=== PATIENT | male | born 1935 | race Caucasian/White ===

== ENCOUNTER 2020-05-30 12:20 | Inpatient (IN) | payer OTHER ==
[~2020-05-30] VITALS: Ht 152 cm; Wt 70.4 kg
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
[2020-05-30 12:27] VITALS: BP 142/73
[2020-05-30 14:42] LABS: ABSOLUTE NEUTROPHILS 4.6 thou/uL (1.4-8.2); BASOPHILS 0.4 % (0.0-2.0); EOSINOPHILS 1.8 % (0.0-3.0); HEMATOCRIT 37.4 % (42.0-52.0); HEMOGLOBIN 12.8 gm/dL (14.0-18.0); LYMPHOCYTES 39.1 % (24.0-44.0); MCH 32.9 pg (26.0-34.0); MCHC 34.1 g/dL (28.0-37.0); MCV 96.5 fL (80.0-100.0); MONOCYTES 8.2 % (1.0-8.0); PLATELET COUNT 214 thou/uL (150-400); POLYS 50.5 % (36.0-66.0); RBC 3.88 mil/uL (4.50-6.00); RDW 14.5 % (10.5-14.5)
[2020-05-30 14:45] LABS: ANION GAP 7 mmol/L (7-16); BUN 20 mg/dL (7-18); CALCIUM 9.2 mg/dL (8.5-10.1); CHLORIDE 103 mmol/L (98-107); CO2 29 mmol/L (21-32); CREATININE 1.4 mg/dL (0.7-1.3); GLUCOSE 185 mg/dL (74-106); POTASSIUM 4.9 mmol/L (3.5-5.1); SODIUM 139 mmol/L (136-145)
[2020-05-30 14:52] LABS: ALBUMIN 3.9 g/dL (3.4-5.0); DIRECT BILIRUBIN < 0.1 mg/dL (<0.1-0.2); SGOT 27 U/L (15-37); SGPT 22 U/L (30-65); TOTAL BILIRUBIN 0.4 mg/dL (0.2-1.0); TOTAL PROTEIN 7.7 g/dL (6.4-8.2)
--- NOTE | 2020-05-30 15:27 | NUR ---
CONTACT RICHIE BECERRIL [phone] (HOME) [phone] (CELL)
[2020-05-30 15:54] LABS: URINE BILIRUBIN NEGATIVE (Negative); URINE BLOOD 2+ (Negative); URINE CLARITY CLEAR; URINE COLOR YELLOW; URINE GLUCOSE-RANDOM* NEGATIVE (Negative); URINE KETONES NEGATIVE (Negative); URINE LEUKOCYTES-REFLEX TRACE (Negative); URINE PROTEIN (DIPSTICK) NEGATIVE (Negative); URINE SPECIFIC GRAVITY 1.025 (1.005-1.035); URINE UROBILINOGEN 0.2 E.U./dl (0.2-1.0)
[2020-05-30 15:56] LABS: URINE NITRITE-REFLEX POSITIVE (Negative)
[2020-05-30 16:02] LABS: AMP/METHAMP Negative (Negative); BARBITURATES Negative (Negative); BENZODIAZEPINES Negative (Negative); COCAINE Negative (Negative); METHADONE Negative (Negative); OPIATES Negative (Negative); PCP Negative (Negative)
[2020-05-30 16:26] LABS: CASTS None Seen /LPF (None Seen); SQUAMOUS 0-3 Few /LPF (0-3)
[2020-05-30 16:27] LABS: CRYSTALS None Seen /LPF (None Seen); URINE WBC-REFLEX 6-15 Few /HPF (0-5)
--- NOTE | 2020-05-31 09:18 | NUR ---
PT'S ON THE PHONE THAT STATES THAT SHE IS UPSET THAT THE PT IS STILL IN THE ER AND STATES THAT SHE DOES NOT WANT HIM IN THE ER ALL WEEKEND LONG. RICHIE UPDATED THAT ONCE THE COVID TEST RESULTS HE WILL BE GOING TO [facility] AND THAT SHOULD BE IN THE AFTERNOON. SHE STATES THAT THE PT HAD A COVID19 TEST ON TUESDAY. UPDATED RICHIE THAT WE DID NOT HAVE A COPY OF IT. SHE STATES THAT SHE WANTS TO COME GET THE PT AND TAKE HIM HOME. UPDATED RICHIE THAT THERE IS A NOTE FROM A TELEPHONE REPAIRER IN THE CHART THAT STATES THAT "[PT'S ] HAS REACHED THE POINT SHE CAN NO LONGER PROVIDE CARE AT HOME, EVEN WITH [facility] RESPITE CARE."
--- NOTE | 2020-05-31 09:35 | NUR ---
THIS WRIER SPEAKS WITH KASSANDRA SÁNCHEZ AND SHE STATES THAT SHE HAS CONSULTED TO DR HALL AND STATES THAT PT IS TO BE ON 96 HOUR HOLD. AFFIDAVID TO BE COMPLETED BY THIS RECREATION THERAPY AIDE AND PRINCESS TO SEND ONE FROM [facility]
--- NOTE | 2020-05-31 10:45 | EKG ---
[facility] Sue Per[address] [facility] [place] [address] ELECTROCARDIOGRAM REPORT Name: MARILYNN BECERRIL i Room #: 170-3 ADM IN M.R.#: [id number] Admission: 05/30/20 Attend Phys: Riky Giordano DO Discharge: Date of : 37 Report #: [id number] THIS REPORT FOR: cc: Marco Antonio Qiu Donald L. DO Couchonnal, Luis F. MD ~ THIS REPORT FOR: //name// [facility] ED Test Date: 2020-05-30 Test Time: 16:03:44 Pat Name: MARILYNN BECERRIL Department: Room: 170 Gender: M Tool Maker: ERICKSON : 1935 Requested By: Juana Adkins Order Number: [id number] MD: Jose Pritchett Measurements Intervals [place] Rate: 88 P: 79 [place]: 175 QRS: 75 QRSD: 94 T: 54 QT: 378 QTc: 458 Interpretive Statements Sinus rhythm Baseline wander in lead(s) V2 No previous ECG available for comparison Electronically Signed On 05-31-2020 10:45:09 CDT by Jose Pritchett [email or web address] <ELECTRONICALLY SIGNED> By: Jose Pritchett MD 05/31/20 1045 1603 1603 Jose Pritchett MD /EPI
[2020-05-31 13:34] VITALS: BP 143/86
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
--- NOTE | 2020-06-01 05:27 | NUR ---
Assumed car eof pt @ 1900. Pt calm et cooperative this shift. Pt appeared to be restless et tried to climb out of donnie-chair several times during the shift. Took medications without difficulty. Did not observe ambulation this shift. VSWNL. Health assessment with no abnormalities noted at present time. Sat in dayroom with peers but did not appear to be socializing. Unable to assess SI/HI at present time due to cognitive deficit but pt does not demonstrate any signs or symptoms of emotional distress. Currently resting in donnie-chair in dayroom with eyes closed. Will continue to monitor per protocol.
[2020-06-01 09:01] VITALS: BP 150/76
[2020-06-01 11:19] VITALS: BP 150/76
--- NOTE | 2020-06-01 11:28 | NUR ---
ASSUMED CARE AT [address] FISH WAS UP EARLY (ABOUT 0800) AND ATTEMPTED TO SPEAK WITH THE PT. PT. IN ASHLIE CHAIR, ASLEEP. HE DID NOT WAKE UP FOR BREAKFAST. HE WAS HARD TO AROUSE FOR HIS MORNING MEDICATIONS. HE DID TAKE ALL OF HIS MEDICATIONS WHOLE, BUT ATTEMPTED TO CHEW THE MEDICATIONS. THIS ESTIMATOR LUMBER KEPT ENCOURAGING HIM TO JUST SWALLOW THE MEDICATIONS. HE TOOK ALL THE MEDICATIONS WITH MUCH ENCOURAGEMENT AND A FULL GLASS OF WATER. HE HAS REMAINED ASLEEP MUCH OF THE MORNING.
--- NOTE | 2020-06-01 12:47 | NUR ---
@1020 am ROLANDO called Pt's DPOA, Bee Horn, in an attempt to complete the psychosocial assessment. Bee was unable to complete at this time and stated she could call SW back at 1130am. @1140 am ROLANDO called Bee back. Bee stated she was upset because she had recieved a phone call from her 's doctor. Bee stated the doctor informed her that the Pt was over sedated. Bee stated again she was very upset and this is the reason she did not want him in the hospital. Bee stated she was going to take him out of the hospital today or tomorrow. ROLANDO offered some emotinal support to Bee. ROLANDO offered to have special investigation unit investigator RESPIRATORY THERAPY ASSISTANT call her concerning the matter. Bee stated she would like a call from the on-call RESPIRATORY THERAPY ASSISTANT. @1200pm ROLANDO sproke with KASSANDRA White special investigation unit investigator concerning the matter. Cindy stated she was going to contact DR. Cabrera. @1204pm Rolando recieved a PC from Dr. Giordano requesting SW to call Pt's DPOA to inform that DPOA will not be enacted and the Pt is on a 96hr hold. @1242pm ROLANDO and JHOAN Bonilla attempted to call Bee twice. Bee did not answer the phone. ROLANDO left a message for a call back, as of this note there has not been a call back from Bee
[2020-06-01 19:20] VITALS: BP 113/54
[2020-06-01 23:10] VITALS: BP 113/54
--- NOTE | 2020-06-02 02:24 | NUR ---
Assumed care on 06/01/20 @ 19:15, in the day room in a donnie chair. Awake, answers questions with short answers. Cooperative with assessment, HRRR, Lungs clear Bilat, ABD sounds normoactive. Compliant with medications, taking meds crushed in yogart. Cohen fall score of 70, can stand and ambulate with x1 assist. Retired to bed @ , and has slept well overnight up to current writing. Will continue to monitor as per protocol.
[2020-06-02 06:15] LABS: ABSOLUTE NEUTROPHILS 3.3 thou/uL (1.4-8.2); BASOPHILS 0.5 % (0.0-2.0); EOSINOPHILS 3.8 % (0.0-3.0); HEMATOCRIT 39.2 % (42.0-52.0); HEMOGLOBIN 13.1 gm/dL (14.0-18.0); LYMPHOCYTES 40.6 % (24.0-44.0); MCH 32.4 pg (26.0-34.0); MCHC 33.4 g/dL (28.0-37.0); MCV 96.8 fL (80.0-100.0); PLATELET COUNT 199 thou/uL (150-400); POLYS 45.1 % (36.0-66.0); RBC 4.05 mil/uL (4.50-6.00); RDW 14.6 % (10.5-14.5); WBC 7.4 thou/uL (4.0-11.0)
[2020-06-02 06:25] LABS: CALCIUM 9.3 mg/dL (8.5-10.1); CREATININE 1.4 mg/dL (0.7-1.3); POTASSIUM 4.2 mmol/L (3.5-5.1)
--- NOTE | 2020-06-02 06:35 | NUR ---
Slept 7.6 hours overnight.
--- NOTE | 2020-06-02 06:38 | NUR ---
Slept 7.6 hours on 06/01.
[2020-06-02 07:41] VITALS: BP 153/88
[2020-06-02 10:15] VITALS: BP 153/88
--- NOTE | 2020-06-02 10:26 | NUR ---
ASSUMED CARE AT 0700 THIS MORNING. PT. STABLE ON HIS FEET AND WALKING AROUND THE UNIT FROM TIME TO TIME OFF SET BY SITTING IN A RECLINING CHAIR. HE IS EATING VERY WELL FOR MEALS. HE WILL DRINK WHEN IT IS PRESENTED TO HIM. HE REMAINS INCONTINENT OF BOWEL AND BLADDER. HE IS UNABLE TO STATE WHEN HE NEEDS TO USE THE RESTROOM. HE MUMBLES WHEN HE SPEAKS MORE OFTEN THAN NOT, MAKING HIS NEEDS/DESIRES UNABLE TO BE KNOWN. HIS EYES ARE OPEN TODAY. NO AGRESSION NOTED OF THIS WRITING. DAUGHTER CALLED AND ASKED FOR AN UPDATE. SHE STATED THIS UPDATE TO HER WAS A REQUEST OF HER MOTHER. DR. FISH HER TO SEE THE PT. ABOUT 0730 THIS MORNING.
[2020-06-02 18:58] VITALS: BP 138/113
[2020-06-03 04:00] VITALS: BP 138/113
--- NOTE | 2020-06-03 04:08 | NUR ---
Assumed care on 06/02/20 seated in a donnie chair, cooperated with assessment, WNL. Compliant with HS medications, taking meds crushed in pudding. Patient awake and agitated @ 23:10. Order obtained from Dr. Giordano for 5mg Melatonin P.O. for insomnia and 0.5mg Lorazapam P.O. for anxiety. Provided crushed in pudding. Also provided Tylenol 650 for 5/10 general pain. Follow up assessment patient noted to be calm and reclined in donnie chair with eyes closed, respirations even and unlabored. Will continue to monitor as per unit protocol for patient safety and comfort.
--- NOTE | 2020-06-03 06:04 | NUR ---
slept 8 hours
[2020-06-03 07:37] VITALS: BP 153/88
--- NOTE | 2020-06-03 07:42 | HC ---
[facility] [place] [place] [address] CONSULTATION Name: MARILYNN BECERRIL i Room #: 527B-B ADM IN M.R.#: [id number] Admission: 05/30/20 Attend Phys: Riky Giordano DO Discharge: Date of : 37 Report #: [id number] THIS REPORT FOR: cc: Marco Antonio Qiu,Marco Antonio Yu,Marco Antonio Novoa DO ~ CC: Riky Qiu DATE OF SERVICE: 05/30/2020 REQUESTED BY: [facility]. 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 The patient has progressive Alzheimer's disease and most recently has been combative and throwing things at his and caregiver including stool-filled diapers. He has been smearing the stool over himself as well. He has not fallen or had any head trauma. No recent fever, diarrhea or vomiting. His appetite has been good. PAST MEDICAL HISTORY: Progressive Alzheimer's. He was hospitalized at [facility] in February for similar presentation. At that time, CAT scan of the head, Neurology and Psychiatry consultations were obtained. He also had one episode of vasovagal syncope during that admission. His other history includes hypothyroidism, prediabetes, hypertension, mixed hyperlipidemia, cervical degenerative arthritis and chronic kidney disease stage 3. MEDICATIONS ON ADMISSION: Quetiapine 100 mg b.i.d., tamsulosin 0.4 mg daily, losartan 100 mg daily, sertraline 50 mg daily, finasteride 5 mg daily, levothyroxine 0.125 mg daily, trazodone 150 mg at bedtime and lorazepam 1 mg t.i.d. p.r.n. anxiety, but his has been reluctant to give that. ALLERGIES: None. 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 There is no history of cigarette or alcohol use. His and caregiver still take him out for lunch every day and usually he is controllable, but for the past 2 days has become much more belligerent. PHYSICAL EXAMINATION: GENERAL: An agitated white male, currently in 4-point restraints in bed. He just was given Geodon IM. VITAL SIGNS: Blood pressure is 130/88, pulse 80, respirations 12, temperature afebrile. HEAD: No rash or trauma. EARS, NOSE, AND THROAT: No definite lesions. EYES: No icterus. NECK: Supple, without bruits. LUNGS: Clear. HE[facility]: Rhythm regular, [facility] [address] [place] [address] CONSULTATION Name: MARILYNN BECERRIL carl Room #: 527B-B ADM IN M.R.#: [id number] Admission: 05/30/20 Attend Phys: Riky Giordano DO Discharge: Date of : 37 Report #: [id number] murmur or gallop. ABDOMEN: Soft and nontender with normal bowel sounds. EXTREMITIES: No cyanosis, clubbing, edema or rash. NEUROLOGIC: The patient is totally irrational and responsive verbally. He makes no sensible words. He is awake and we will follow with his eyes. Creatinine is 1.4. CBC is stable. Other lab is pending. IMPRESSION: 1. Alzheimer disease with psychotic behavior disturbance. 2. Hypertension. 3. Prediabetes. 4. Hypothyroidism. 5. Mixed hyperlipidemia. 6. Cervical degenerative disk disease. 7. Chronic kidney disease stage 3. RECOMMENDATIONS: Admit to the [facility]. Attempt to sedate the patient to a comfortable level for himself, so as not to harm himself or others. He has been on Seroquel 100 mg b.i.d., probably needs a higher dose. I have spoken with admitting psychiatrist who will manage him psychiatrically. Thank you for the opportunity to see this patient in consultation. We will follow along with you. We would continue other outpatient meds. <ELECTRONICALLY SIGNED> By: Marco Antonio Qiu DO 06/03/20 0742 [id number] 0123 Marco Antonio Qiu DO /nt
--- NOTE | 2020-06-03 08:30 | EKG ---
[facility] [address] ELECTROCARDIOGRAM REPORT Name: MARILYNN BECERRIL carl [facility] [id number] Admission: 05/30/20 Attend Phys: Riky Giordano DO Discharge: Date of : 37 Report #: [id number] THIS REPORT FOR: cc: Marco Antonio Qiu,Jos Tinajero MD [facility] ~ THIS REPORT FOR: //name// [facility] Test Date: 2020-06-03 Test Time: 08:24:56 Pat Name: MARILYNN BECERRIL Department: Room: [facility] Gender: M Circulation Worker: MIGUEL ANGEL : 1935 Requested By: Marco Antonio Qiu Order Number: [id number] MD: Jos Watts Measurements Intervals [place] Rate: 87 P: 77 [place]: 175 QRS: 75 QRSD: 120 T: QT: 384 QTc: 462 Interpretive Statements Sinus rhythm Atrial premature complexes Nonspecific intraventricular conduction delay Nonspecific T abnormalities, lateral leads Compared to ECG 05/30/2020 16:03:44 Atrial premature complex(es) now present Intraventricular conduction delay now present Electronically Signed On 06-03-2020 8:30:33 CDT by Jos Watts [email or web address] <ELECTRONICALLY SIGNED> By: Jos Watts MD, FACC 06/03/20829 3 3 Jos Watts MD, [facility] /EPI
--- NOTE | 2020-06-03 10:58 | NUR ---
Dr. Giordano and SW spoke with Olga Vazquez at [phone] Giordano explained that she is listed on pt's DPOA docs and he would prefer her to be pt's sales representative advertising during his stay; as opposed to his due to pt's 's disposition and behavior according to pt's current physician. Also, interaction with pt's with [facility] staff has not been stable. Olga said she would take over the responsibility. SW team will continue to follow pt during his stay on this unit.
--- NOTE | 2020-06-03 13:37 | NUR ---
Alert and orientated to name only. Chewing plastic container at breakfast, became resistant and slightly combative when attempting to remove. Calmed down within minutes with redirection. Ambulates in hallways with reg steady gait, needs frequent reminders to use walker. Initially resistant to meds but then took without diff when crushed and placed in apple sauce. Denies SI/HI. Resistant to opening eyes/mouth at times. Breath sounds clear t/o. Reg HR auscultated. 12 lead EKG done this am and results faxed per request. Color pink with brisk capillary refill and palpable peripheral pulses. +1 edema in lower extremities. Incontinent of yellow urine per brief. Active bowel sounds over soft, flat abdomen.
[2020-06-03 19:35] VITALS: BP 122/65
[2020-06-03 21:00] VITALS: BP 122/65
--- NOTE | 2020-06-04 03:07 | NUR ---
PATIENT WANDERED THE UNIT TONIGHT. HE DID SIT AND DRINK SOME WATER I OFFERED HIM AFTER HE TOOK HIS MEDS CRUSHED IN PUDDING. HE HAS BEEN WALKING THE HALLS AND CHECKING THE DOOR LOCKS. HE HAS STAYED TO HIMSELF. HE IS A/0X1. NO COMBATIVE BEHAVIORS NOTED. PATIENT WAS ASSISTED TO BED. HIS BED IS IN LOW POSITION AND BED ALARM IS ON. PATIENT FORGETS TO USE HIS WALKER AND HAS TO BE REMINDED BUT IS VERY STEADY ON HIS FEET TONIGHT. SEVERAL ATTEMPTS THRU OUT DAY TO KEEP SOCKS ON PATIENT BUT HE TAKES THEM OFF AND WANTS TO GO BARE FOOT. ROUTINE ROUNDS TO ASSESS SAFETY AND STATUS OF PATIENT. WILL CONTINUE TO MONITOR.
[2020-06-04 08:58] VITALS: BP 159/93
--- NOTE | 2020-06-04 10:54 | NUR ---
Assumed care of patient at 0700. Ambulating about unit. Gait slow and steady. Assisted with breakfast. Encouraged to eat and was fed. Eats slowly. Taking medications crushed with applesauce. Breath sounds clear, abdomen soft with active bowel sounds. Incontinent. Is not resistive or aggressive. No pedal edema noted.
--- NOTE | 2020-06-04 17:04 | NUR ---
ROLANDO and Dr. Giordano spoke with both Olga and Carolina who decided they want their mom to remain DPOA and decision maker. Pt's was added to the call and initially she wanted to take her home. However, after some conversation, she agreed to the [facility]; she had inquired about the [facility] and met with a liason. ROLANDO contacted Kathy with the [facility]. No answer. [facility] [place] [facility]. ROLANDO team will continue to follow pt during her stay on this unit.
[2020-06-04 19:40] VITALS: BP 97/60
[2020-06-04 20:00] VITALS: BP 97/60
--- NOTE | 2020-06-05 00:58 | NUR ---
PATIENT WAS UP WANDERING AT THE BEGINNING OF THE SHIFT, TRYING TO OPEN DOORS AND GET INTO THE NURSE STATION. PATIENT WAS EASILY REDIRECTED TO ANOTHER ACTIVITY. PATIENT DID SIT IN DINING ROOM AND HAD 2 SNACKS TONIGHT AT HS. HE TOOK HIS MEDS CRUSHED IN PUDDING WITHOUT INCIDENT. PATIENT WENT TO BED BY 2100. HE HAS BEEN SLEEPING ALL NIGHT. HE DOES NOT SPEAK MUCH EXCEPT ONE WORD AT A TIME. PATIENT WITH FLAT AFFECT. PATIENT DENIES PAIN. NO SIGNS OF SI/HI/AVH. BED IN LOW POSITION AND BED ALARM ON. SIDE RAILS UP X 3. INCONTINENCE CARE NEEDED. ROUTINE ROUNDING TO ASSESS STATUS AND SAFETY OF PATIENT.
[2020-06-05 05:55] LABS: HEMATOCRIT 33.9 % (42.0-52.0); HEMOGLOBIN 11.6 gm/dL (14.0-18.0); MCH 32.7 pg (26.0-34.0); MCHC 34.1 g/dL (28.0-37.0); PLATELET COUNT 181 thou/uL (150-400); RBC 3.54 mil/uL (4.50-6.00); RDW 14.2 % (10.5-14.5); WBC 6.6 thou/uL (4.0-11.0)
[2020-06-05 06:30] LABS: CALCIUM 8.9 mg/dL (8.5-10.1); CREATININE 1.4 mg/dL (0.7-1.3); POTASSIUM 4.5 mmol/L (3.5-5.1)
[2020-06-05 07:32] VITALS: BP 153/83
[2020-06-05 10:31] LABS: ABSOLUTE NEUTROPHILS 2.1 thou/uL (1.4-8.2); PLATELET ESTIMATE NORMAL
--- NOTE | 2020-06-05 10:45 | NUR ---
ROLANDO received a call from Melissa with the [facility] who asked for a return call at [phone]. ROLANDO called. No answer. ROLANDO left [facility]. SW team will continue to follow pt during his stay on this unit.
--- NOTE | 2020-06-05 11:33 | NUR ---
Assumed care of patient at 0700. Up in chair in dayroom. Calm. Fed self. Takes medication with applesauce. Ambulates by self. Gait steady. Breath sounds clear, bowel sounds active. Abdomen soft. Becoming more resistive to redirection. Pacing. Trying all the doors, attempted to leave via front door and was resistive when trying to leave the nursing station. Yelling and hitting at staff. Attempted to hit staff. Redirected to room. Dr. Giordano called at 0945 and came onto the unit to see the patient. Medicated with Geodon 10 mg IM at 0945. Has been redirected from his room. Resting quietly in room.
[2020-06-05 19:23] VITALS: BP 141/78
--- NOTE | 2020-06-06 05:14 | NUR ---
Assumed care of pt @ 1900. Pt calm et cooperative at beginning of shift. Had a few episodes of agitation with yelling at staff when attempting to redirect. Pt with exit-seeking behaviors this shift. Took medications crushed in pudding without difficulty. Ambulates the halls ad maci with steady gait. VSWNL. Health assessment with no abnormalities noted at present time. Unable to assess SI/HI/AH/VH due to cognitive deficit but does not demonstrate any signs or symptoms of acute emotional distress at present time. Currently resting in donnie-chair in dayroom with eyes open. Will continue to monitor per protocol.
[2020-06-06 07:51] VITALS: BP 122/65
--- NOTE | 2020-06-06 08:25 | NUR ---
RT Progress Note- Phong's participation and involvement in the milieu and recreation groups has been extremely limited d/t his level of cognition and wandering behaviors. Phong wanders through groups at times and is difficult to redirect when becoming disruptive. RT staff will encourage involvement in groups as much as possible to machine shop helper in limiting wandering behaviors.
--- NOTE | 2020-06-06 10:44 | NUR ---
Alert and ambulating around unit without s/o distress. Agitated and combative this AM but calmed down without need for PRN meds. Does not state name as he did several days ago. Occassionally says "HI" to peers/staff but very little other verbalizations. Breath sounds clear t/o. Reg HR auscultated. Color pink with brisk capillary refill and palpable peripheral pulses. +1 edema in lower extremities. Brief dry. Active bowel sounds over soft, flat abdomen. Last BM documented on 06/02, care team aware and state they will write orders. Also aware of BUN/cr.
--- NOTE | 2020-06-06 12:34 | NUR ---
ROLANDO received a msg that Melissa with the [facility] would like for ROLANDO to call her at the [facility] at [facility]. ROLANDO did so and was told by the recreation adviser that Melissa is unavailble today. ROLANDO explained that she has been attempting to contact [facility] for now 3 days about pt. The recreation adviser took ROLANDO info down and said she will have someone call her. SW team will continue to follow pt during her stay on this unit.
[2020-06-06 19:29] VITALS: BP 129/70
--- NOTE | 2020-06-07 04:42 | NUR ---
Assumed care of pt @ 1899. Pt calm et cooperative at beginning of shift. At approximately 2114, pt became extremely agitated et started to hit out at staff when attempting to redirect. Assisted pt to chair and he attempted to kick staff et hit them. PRN Olanzapine administered to right deltoid. Pt cursed but was calm approximatly 20 minutes after injection. VSWNL. Health assessment with no abnormalities noted at present time. Unable to assess SI/HI/AH/VH due to cognitive deficit but pt does not demonstrate any signs or symptoms of any acute emotional distress at present time. Currently resting in donnie-chair in dayroom with eyes closed. Will continue to monitor per protocol.
[2020-06-07 06:04] LABS: CALCIUM 9.2 mg/dL (8.5-10.1); CREATININE 1.2 mg/dL (0.7-1.3); POTASSIUM 4.1 mmol/L (3.5-5.1)
[2020-06-07 10:11] VITALS: BP 149/84
[2020-06-07 20:24] VITALS: BP 111/76
--- NOTE | 2020-06-08 04:12 | NUR ---
Assumed care of pt @ 1900. Pt calm et cooperative at beginning of shift but became greatly agitated around 1999. Pt became very combative et belligerent with staff when attempting to redirect away from peer. Pt attempted to hit staff et pinched staff attempting to redirect to dayroom. PRN olanzapine IM administered to left deltoid. Pt showed no signs or symptoms of adverse reaction. Took medications crushed in pudding without difficulty following injection. VSWNL. Health assessment with no abnormalities at present time. Unable to assess SI/HI/AH/VH due to cognitive deficit but pt did not demonstrate any signs or symptoms of acute emotional distress at present time. Pt currently resting in donnie-chair in dayroom with eyes closed. Will continue to monitor per protocol.
[2020-06-08 07:30] VITALS: BP 162/93
--- NOTE | 2020-06-08 09:41 | NUR ---
Assumed patient care at 0715. Vital signs stable, ABD soft and non-tender, BS x's 4, LSCTA, skin is clean, warm dry and intact; he appears to be in no distress. Patient is unable to follow commands, answer questions. He is restless as he ambulates around the unit, pushing chairs around.
[2020-06-08 19:39] VITALS: BP 118/56
[2020-06-09 04:05] VITALS: BP 118/56
--- NOTE | 2020-06-09 04:12 | NUR ---
Assumed care on 06/08/20 @ 19:30, seated in a donnie chair in the day room, and ambulating in the hallways. Became combatitive with staff and given Olanzapine 5mg IM @ 21:30. Laid down in bed, and rested for about two hours, then got up and was transferred to a donnie chair, hitting and kicking anyone who was close to chair. Ziprasidone HCL 15mg IM one time order provided with staff x2 and security x2 assistance. Calmed after 20 minutes, and at the present writing, has eyes closed, respirations even and unlabored. Will continue to monitor as per unit protocol for safety and comfort.
[2020-06-09 08:50] VITALS: BP 147/70
[2020-06-09 10:39] VITALS: BP 148/78
--- NOTE | 2020-06-09 10:45 | NUR ---
HAS BEEN WANDERING IN HALLWAYS AND DAYROOM MAJORITY OF SHIFT THUS FAR.WILL ATTEMPT TO FOLLOW STAFF INTO ROOMS AND DID BECOME AGITATED PUSHING AND SHOVING AGAINST STAFF TO ENTER PEERS ROOM. HAS BEEN NON-VERBAL SO FOR THIS SHIFT.DID TAKE PO MEDS CRUSHED IN YOGURT AND FED SELF BREAKFAST. SITS FOR ONLY SHORT PERIODS OF TIME BEFORE RESUMING PACING. NO REPORTED PAIN AND NO S/S OF PAIN
--- NOTE | 2020-06-09 14:11 | NUR ---
ROLANDO and Dr. giordano spoke with Yolande with [facility] and provided an update. Dr. Giordano explained that he does not anticipate pt being ready for d/c before Tue. ROLANDO faxed to Yolande an update on pt. ROLANDO and Dr. Giordano called pt's . No answer. ROLANDO left a msg. ROLANDO contacted Olga and provided an update. Olga said she will update her mother. SW team will continue to follow pt during her stay on this unit.
--- NOTE | 2020-06-09 15:19 | NUR ---
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 Seen for LOS. Chart reviewed. PO intake fair/good, average 60% intake of meals past 4 days. Pt mostly nonverbal during visit, noted periods of agitation, aggression, exit seeking behaviors. Admit weight 160#, current weight 156#. Possible 3# loss, unsure of accuracy. Will offer daily ensure due to suboptimal intake. Working on D/C plan per CM. Consider low risk with interventions in place.
[2020-06-09 19:32] VITALS: BP 136/79
[2020-06-10 01:30] VITALS: BP 136/79
--- NOTE | 2020-06-10 02:12 | NUR ---
Assumed care on 06/09/20 @ 19:15, ambulating without a walker through the mileu, occasionally entering other rooms, compliant with redirection out of peer's rooms and returned to day room, by taking his hand and walking together. Not able to get him to use a walker, does not seem to understand, much less comply with safety purpose of the walker. Cooperative with assessment, VSWNL, HRRR, Lungs CTA Bilat, ABD N x 4Q. Reported last bm on 06/08. Compliant with medications whole in pudding followed with 8 oz of water. Tylenol 650 provided PRN for general pain of 5/10 and Trazadone 150 provided for insomnia. Oriented not even to self nor able to state name. Awake for several hours in a donnie chair in the day room, then eventually closed eyes and currently at this writing is noted to be quiet, respirations even and unlabored, chair alarm in place. Will continue to monitor for patient safety and comfort.
[2020-06-10 07:41] VITALS: BP 154/87
--- NOTE | 2020-06-10 11:09 | NUR ---
Alerts to name only. Does not states name. One-two word statements. Mostly confused speech. Denies SI/HI. Wandering around unit with slow steady gait, requiring frequent redirection to stay out of other pts. rooms. Breath sounds clear t/o. Reg HR auscultated. Color pink with brisk capillary refill and palpable peripheral pulses. Active bowel sounds over soft, flat abdomen. Resistant to sitting on toilet. Incontinent of large amt urine per brief. Eats independently. Compliant with meds crushed in pudding.
[2020-06-10 17:48] VITALS: BP 119/72
--- NOTE | 2020-06-10 23:06 | NUR ---
Care assumed of patient at 1915: Patient restless but cooperative at start of shift. Patient became increasingly agitated as the night progressed. Patient took HS medication crushed without difficulty. Ate 100% HS snack with some assistance. Patient attempted to suck from top of spoon rather than using spoon to eat ice cream. Patient was incontinent of bladder. Staff x3 assisted patient to the bathroom. Patient yelling, kicking, non-compliant with ADL cares. After katrin care and linen change, patient pacing the halls, dayroom and other peer rooms. Patient continued to be agitated. Patient took another peers walker and attempted to swing it at staff. Order obtained for Norris IM. Injection administered with staff x3. Patient was able to be assisted to bed approximately 1.5 hours later without difficulty and is resting quietly at this time. Patient alert and oriented to person only. Confused, forgetful. Primarily presents with disorganized speech. Flat, blunted, angry affect observed.
[2020-06-11 06:18] LABS: HEMATOCRIT 33.4 % (42.0-52.0); HEMOGLOBIN 11.3 gm/dL (14.0-18.0); MCH 32.6 pg (26.0-34.0); MCHC 33.8 g/dL (28.0-37.0); MCV 96.5 fL (80.0-100.0); PLATELET COUNT 181 thou/uL (150-400); RBC 3.46 mil/uL (4.50-6.00); RDW 14.2 % (10.5-14.5); WBC 7.5 thou/uL (4.0-11.0)
[2020-06-11 06:55] LABS: ALBUMIN 3.2 g/dL (3.4-5.0); CALCIUM 8.8 mg/dL (8.5-10.1); CREATININE 1.4 mg/dL (0.7-1.3); POTASSIUM 4.3 mmol/L (3.5-5.1); TOTAL BILIRUBIN 0.2 mg/dL (0.2-1.0); TOTAL PROTEIN 6.2 g/dL (6.4-8.2)
[2020-06-11 07:56] LABS: ABSOLUTE NEUTROPHILS 3.2 thou/uL (1.4-8.2)
[2020-06-11 07:57] LABS: ANISOCYTOSIS 1+
[2020-06-11 08:59] VITALS: BP 107/73
--- NOTE | 2020-06-11 10:53 | NUR ---
HAS BEEN WANDERING IN DAYROOM AND HALLWAYS MAJORITY OF SHIFT SO FAR-WILL OCCASSIONALLY ENTER PEERS ROOM BUT IS EASILY REDIRECTABLE-PROVIDED WITH ROLLER WALKER SEVERAL TIMES AND WILL USE FOR 2-3 MINUTES BEFORE WALKING AWAY FROM IT-GAIT IS STEADY WITHOUT ASSISTVE DEVICES-REMIANS HIGH FALLS RISK D/T IMPULSIVE BEHAVIORS-IE TRYING TO MOVE FURNITURE-LIFT UP COFFEE MACHINE-PUSHING A CHAIR IN FRONT OF HIM ETC) HAS BEEN NON-VERBAL WITH THIS NURSE SO FAR THIS AM -DID ALLOW MAJORITY OF AM ASSESSMENT BEFORE GETTING UP TO WALK AWAY. CONTINUES TO EXHIBIT INCREASED AGITATION/PUSHING STAFF AWAY,GRABBING ONTO SOILED PANTS BRIEF-GRITTING TEETH-REFUSING TO LET GO OF STAFF ARM DURING INCONTINENT CARE.
[2020-06-11 19:23] VITALS: BP 131/110
[2020-06-11 22:08] VITALS: BP 131/110
--- NOTE | 2020-06-12 05:03 | NUR ---
Assumed care of patient this pm shift. Patients moods are variable. Patient is generally pleasant, although intrusive with other peers and combative with cares. Patients affect is blunted. Patient takes medications crushed in ice cream. Patient is considered a falls risk and has on a yellow shirt and socks. Patient has slept through most of the night in the donnie chair. Patients assessment shows no signs of acute distress. We will continue to monitor per hospital policy.
[2020-06-12 09:05] VITALS: BP 142/67
--- NOTE | 2020-06-12 11:29 | NUR ---
HAS BEEN PACING IN HALLWAYS THIS AM-SOME INTRUSIVENESS HE WILL WANDER INTO PEERS ROOMS OR TRY TO MOVE FURNITURE THAT SOMEONE IS SITTING IN. GRABBED A FEMALE PT ON THE SHOULDER BUT APPEARED TO BE TRYING TO ASSIST HER. GIVEN SHAVE,CLOTHING CHANGE,HAIR AND TOENAIL TRIM -WAS RESISTIVE WITH THIS BUT DID ALLOW WITH MUCH ENCOURAGEMENT. GAIT IS STEADY SO FAR THIS AM. COMPLIENT WITH AM MEDS CRUSHED AND IN PUDDING.
--- NOTE | 2020-06-12 15:33 | NUR ---
DURING WEEK ONE OF HER ADMISSION, MARILYNN HAS BEEN VERY UNPREDICTABLE OF HIS BEHAVIORS. PT WILL SOMETIMES HAVE MOMENTS OF LOUD OUTBURSTS AND THEN HE IS CALM. PT IS CALMER WHEN HE HAS HAD HIS MEDICATION AND WHEN HE CAN PACE AND WALK BACK AND FOURTH IN THE MILEU AND GROUPS. IT IS ENCOURAGED BY THE RECREATION THERAPIST THE HE WILL COMNTINUE TO IMPROVE HIS COPING SKILLS TO REDUCE ANY STRESSORS.
--- NOTE | 2020-06-13 06:04 | NUR ---
Assumed care of pt @ 1900. Pt calm et cooperative at present time. Took medications crushed without difficulty. Ambulates the halls ad maci with steady gait. VSWNL. Health assessment with no abnormalities at present time. Unable to assess SI/HI due to cognitive deficit but pt does not demonstrate any signs or symptoms of emotional distress at present time. Currently resting in bed with eyes closed. Will continue to monitor per protocol.
[2020-06-13 08:00] VITALS: BP 155/94
--- NOTE | 2020-06-13 13:37 | NUR ---
ROLANDO received a call from Carolina, pt's daughter, stating that she heard her dad was doing horrible and is on her way to to help with placement. ROLANDO explained that info is not accurate. Her dad is doing better and is responding well to the med change. ROLANDO also advised a placement has already been chosen. ROLANDO received a call form Melissa [facility]ba asking SW to send a referral. ROLANDO explained that pt already has a placement. ROLANDO contacted Yolande with [facility] and provided an update. ROLANDO also faxed updates. SW team will continue to follow pt during his stay on this unit.
--- NOTE | 2020-06-13 17:30 | NUR ---
PATIENT WAS UP, AND OUT ON THE UNIT WHEN CARE ASSUMED. PATIENT IS FORGETFUL, VERY CONFUSED, PATIENT REQUIRES ASSIST OF STAFF TO FEED, MEDICATION GIVEN CRUSHED IN YOHURT, WELL TOLERATED. PATIENT FED LUNCH BY STAFF. PATIENT IS INCONTINENT OF BOWEL/BLADDER, INCONTINENT CARE PROVIDED BY STAFF. PATIENT IS RESTLESS, WANDERS INTO PEER'S ROOMS, EXIT SEEKING, DIFFICULT TO REDIRECT AT TIMES. PATIENT HAD LARGE SOFT BOWEL MOVEMENT, WHEN STAFF ATTEMPTS TO CLEAN HIM UP, PATIENT BECAME VERY IRRITABLE, AGGRESSIVE, COMBATIVE TOWARDS STAFF. IT TOOK THREE STAFF TO CLEAN PATIENT UP. PATIENT CONTINUE TO ESCALATE, BECAME INTRUSIVE TOWARDS PEERS, SNATCHING WALKER FROMS PEER, PUSHING CHAIRS, AND SUPPER TRAY TO THE FLOOR. HE BECAME VERY DIFFICULT TO VERBALLY REDIRECT, PRN IM CHLORPROMAZINE GIVEN TO LEFT DELTOID, WELL TOLERATED. PATIENT IS NOW SLOWING DOWN, WANDERING AROUND THE DAYROOM, WILL CONTINUE TO REDIRECT, AND MONITOR FOR SAFETY.
[2020-06-13 19:28] VITALS: BP 98/50
--- NOTE | 2020-06-14 04:34 | NUR ---
Assumed care of pt @ 1900. Pt calm et cooperative this shift. Took medications crushed in orange sherbet without difficulty. Ambulates the halls with steady gait. VSWNL. Health assessment with no abnormalities present time. Unable to assess SI/HI/AVH due to cognitive deficit but pt does not demonstrate any signs or symptoms of emotional distress at present time. Currently resting in donnie-chair in dayroom at present time. Will continue to monitor per protocol.
--- NOTE | 2020-06-14 10:38 | NUR ---
[facility]. PATIENT WAS ABLE TO WAKE-UP, ATE BREAKFAST, AND TOOK MORNING MEDICATION CRUSHED IN YOGURT WITHOUT DIIFICULTY. PATIENT WENT RIGHT BACK TO SLEEP AFTER BREAKFAST. NO AGITATION OR AGGRESSIVE BEHAVIOR NOTED AT THIS TIME. PATIENT IS NOT ABLE TO APPROPRIATELY RESPOND TO ASSESSMENT QUESTIONS DUE TO COGNITIVE IMPAIRMENT. NO SIGN OF ACUTE DISTRESS NOTED AT THIS TIME, WILL MONITOR FOR SAFETY.
[2020-06-14 12:20] VITALS: BP 158/91
--- NOTE | 2020-06-15 04:47 | NUR ---
Assumed care of pt @ 1900. Pt slightly agitated at beginning of shift. Pt refused vital signs. Took medications crushed in pudding without difficulty. Ambulates the halls ad maci with slightly unsteady gait. VSWNL. Health assessment with no abnormalities noted at present time. Unable to assess SI/HI/AVH due to cognitive deficit but pt does not demonstrate any signs or symptoms of any acute emotional distress at present time. Currently resting in bed with eyes closed. Will continue to monitor per unit protocol.
[2020-06-15 07:44] VITALS: BP 137/93
--- NOTE | 2020-06-15 11:43 | NUR ---
Assumed care 0700. No voiced complaints. When asked assessment questions he responds with silence and does not answer. He wanders into other patients rooms. Is redirected out of those rooms. When asked if he needs the restroom he holds his croch but does answer the question. He was combative at breakfast time, did not self feed. Was assisted in feeding as tolerated. Was cooperative for medications--some he was chewing. Was given extra applejuice. He had a soft formed large BM mostly in the toilet. He does not seem to understand what staff wants him to do. Does not understand directions given simply. Exit seeking at times.
--- NOTE | 2020-06-15 18:35 | NUR ---
PATIENT TALKED TO DAUGHTER AND ON THE PHONE IN SHORT CONVERSATION. wants to take patient to another facility. Overall he has not been combative. Has wandered into other patients rooms. tries to be helpful and kind with other patients.
[2020-06-15 19:54] VITALS: BP 141/93
[2020-06-16 03:28] VITALS: BP 141/93
--- NOTE | 2020-06-16 03:37 | NUR ---
Assumed care on 06/15/20 @ 19:15, seated in the day room, up ambulating independently at times, at times going into peers rooms, and seeking to elope. Cooperated with assessment, compliant with medications, crushed in ice cream. Trazadone 150 provided @ 20:10 for insomnia. Combatitive with incontinent care, Tylenol 650 provided for 5/10 general pain, Chloropromazine 25 IM provided for agitation and combatitive. No relief noted. New order obtained from Dr. White for 50mg IM, provided @ 22:45. Ate several snack choices and after about 30 minutes calmed and was taken to bed x2 assist. In bed at this writing, eyes closed, respirations even and unlabored, bed in low position, bed alarm set.
[2020-06-16 07:34] VITALS: BP 142/85
--- NOTE | 2020-06-16 10:57 | NUR ---
ROLANDO received a call from [facility] asking for an update on pt. ROLANDO explained that pt's family have chosen another facility. Ana Paula said ok. ROLANDO team will continue to follow pt during his stay on this unit.
--- NOTE | 2020-06-16 10:59 | NUR ---
Nutrition followup: Pt eating on average 75% of meals, 100% of ensure supplement daily has been recently recorded. Admit weight 160#, no source. Possibly reported. 06/07: 156#, 06/14: 155#. Follow trends. Pt continues with exit seeking behaviors, periods of agitation, aggression. Continue as low nutrition risk, follow nutritional parameters.
--- NOTE | 2020-06-16 14:48 | NUR ---
HAS BEEN COOPERATIVE/CALM SO FAR THIS AM. NO AGITATION,GAIT STEADY WITHOUT ASSISITIVE DEVICES. MINIMALLY VERBAL WILL RESPOND RANDOMLY-USUALLY 1-2 WORD RESPONSES. APPETTTE GOOD ATE 100 PERCENT OF BREAKFAST AND LUNCH PROVIDED-ALSO TOOK ENSURE SUPPLEMENTS.
--- NOTE | 2020-06-16 15:47 | NUR ---
AMBULATES IN HALLWAYS WITHOUT ASSISTIVE DEVICES-GAIT BECOMES UNSTEADY AFTER SCHEDULED THORAZINE BUT WILL ALLOW STAFF TO ASSIST TO CHAIR-WILL DOZE FOR SHORT INTERVALS IN CHAIR IN DAYROOM. DOES REQUIRE 2 STAFF TO COMPLETE INCONTINENT CARE-BRIEF CHANGE HE WILL HOLD TIGHTLY ONTO PANTS AND SOILED BRIEF STATING LOUDLY "NO" AND PULLS AWAY FROM STAFF. DOES NOT APPEAR TO BE HAVING PAIN NO FACIAL GRIMACING OR GUARDING NOTED. SOME MILDLY INTRUSIVE BEHAVIOR HE WILL WANDER INTO PEERS ROOMS IF DOOR LEFT UNCLOCKED-IS EASILY REDIRECTED BY STAFF.
[2020-06-16 19:33] VITALS: BP 142/92
[2020-06-17 04:02] VITALS: BP 142/92
--- NOTE | 2020-06-17 05:15 | NUR ---
Assumed care on 06/16/20 @ 19:15, ambulating independently thru the mileu. Cooperated with assessment, compliant with medication, accepting meds crushed in applesauce. Ate 100% snack, fed snack. Rested in donnie chair through out the night.
[2020-06-17 07:16] VITALS: BP 135/67
--- NOTE | 2020-06-17 09:48 | NUR ---
APPEARS UNKEMPOT THIS AM- UNSHAVEN AND T-SHIRT SOILED-EVS CONTACTED TO OBTAIN FRESH [id number] AND BRIEF CHANGED AND HAIR COMBED-RESTLESS AT THIS TIME BUT DID TAKE AM SCHEDULED THORAZINE CRUSHED IN JELLY SO WILL REATTEMPT SHAVING IN APPROX 30 MINUTES. GAIT SLOW BUT STEADY WITHOUT ASSISTIVE DEVICES. ORIENTED TO NAME ONLY. WILL OFFER 1-2 WORD RESPONSES BUT OVERALL IS NON-VERBAL. ATE APPROX 75 PERCENT OF BREAKFAST WITH ASSIST.
--- NOTE | 2020-06-17 16:48 | NUR ---
When SW arrived to the unit, she saw that pt was very sleepy and did not look like his normal self. ROLANDO discussed this with Dr. Giordano who reviewed is chart and saw his thorazine had been increased due to his behaviors this morning. ROLANDO and Dr. Giordano agreed that pt's thorazine needed to be decreased and that he needs a facility that can meet him where he is. Dr. Giordano said that pt needs to go to [facility] (as they are willing to accept pt where he is) or go home with Olga or Tammy. ROLANDO contacted the [facility] and spoke to Ana Paula who said they still have availability for pt, but they need an answer by tomorrow in order to hold his spot. They would like to take pt on Tuesday to prepare for his arrival. ROLANDO and Dr. Giordano contacted Olga about their findings, and that Dr. Qiu wrote in his notes that a small facility may not be best for pt; Dr. Giordano also agrees with that view. He explained that the pt's behaviors is making [facility] nervous about him residing with them; possibly because they do not have a large aount of staff. He explained because [facility] has accepted pt that he needs to go to that placement or go home. Olga said she understands. Dr. Giordano explained that the next phone call would be to her mother. ROLANDO and Dr. Giordano contacted Tammy who said that [facility] is where she wants him to go. Dr. Giordano explained that [facility] is unsure if they can handle pt's needs where he is. Dr. Giordano explained that said they can and are willing to work with him. He explaiend that she has until tomorrow morning to make this decision otherwise pt will be d/c'd by tomorrow afternoon. She said she understands. ROLANDO and Dr. Giordano contacted Yolande with [facility] and gave an update. She agreed that their place may not be the best place for pt. ROLANDO received a call from Akosua with ; she is a SW that the family has worked with for several years. ROLANDO got prior approval from Olga to speak to her. Akosua was told that the hospital has not been working with the family, and that has 19 case of COVID. After a review, they only have 2 cases. ROLANDO team will continue to follow pt during her stay on this unit.
--- NOTE | 2020-06-17 19:31 | NUR ---
COOPERATIVE WITH FULL SHOWER/SHAMPOO AND SHAVE THIS AM. SOMULENT IN AM BUT APPEARS MORE ANIMATED THIS PM UP WALKING IN HALLWAYS AND SITTING ON COUCH IN DAYROOM WITH MALE PEERS EATING ICE CREAM AND WATCHING TV. NO AGITATION OR AGGRESSIVE BEHAVIORS NOTED OR REPORTED. DENIES PAIN-REQUIRES ASSIST WITH MEALS BYT EATING 75-100 PERCENT PLUS ALL OF SUPPLEMENTS
[2020-06-17 19:32] VITALS: BP 134/76
--- NOTE | 2020-06-18 06:09 | NUR ---
06-17-19 CARE TRANSFERRED AT 1900 OBSERVED PT WALKING IN HALLWAY. 1952 PT AAOX1, VSS, RR EVEN AND NONLABORED ON RA. PT EXPRESSIVE APHASIA UNCERTAIN IF PT UNDERSTANDS QUESTION BUT OBSERVED NO S/S OF PAIN AND NO SELF HARM BEHAVIORS, PT WAS CALM AND COOPERATIVE THROUGHOUT NURSING ASSESSMENT. LATER PT WAS REDIRECGTED OUT OF ANOTHER PT ROOM. WHILE GETTING PT MEDICATION RECEIVED REPORT FROM CHARGE THAT PT WAS GROWING AGITATED AND SLAPPED AT HER AND BOTHERING ANOTHER PT. DURING MEDICATION ADMIN PT HAD NO TROUBLE PT WAS SWING HIS HANDS AROUND AND WAS AGITATED HE HAD NO DIFFICULTIES TAKING THE MEDICATION. CONTINUE TO MONITOR AND NOTED A SHORT TIME LATER PT HAD CALMED DOWN AND REDIRECTED TO BED. LATER NOTED PT RIGHT SIDE LYING IN BED RESTING WITH EYES CLOSED. ZERO S/S OF ACUTE DISTRESS NOTED, PT WILL CONTINUE TO BE MONITOR PER [facility] PROTOCOL.
[2020-06-18 07:00] VITALS: BP 108/68
--- NOTE | 2020-06-18 10:51 | NUR ---
PATIENT WAS UP, AND OUT IN DAYROOM WHEN CARE ASSUMED. PATIENT REMAIN ALERT TO SELF, FORGETFUL, AND PLEASANTLY CONFUSED. PATIENT TOOK MORNING MEDIATIONS CRUSHED IN APPLE SOURCE WITHOUT DIFFICULTY. PATIENT IS EATING MEALS, AND DRINKING FLUID WELL, HE REQUIRES ASSIST OF STAFF TO FEED. PATIENT IS INCONTINENT OF BOWEL/BLADDER, INCONTINENT CARE PROVIDED PER STAFF. PATIENT HAS BEEN SITTING IN A CHAIR SINCE AFTER BREAKFAST, SLEEPING OFF/ON. PATIENT IS NOT ABLE TO APPROPEIRATELY RESPOND TO ASSESSMENT QUESTIONS DUE TO COGNITIVE IMPAIRMENT. NO AGGRESSION OR AGITATION NOTED AT THIS TIME. NO SIGN OF ACUTE DISTRES NOTED, WILL MONITOR FOR SFETY.
--- NOTE | 2020-06-18 12:47 | NUR ---
ROLANDO received a call from Ana Paula with [facility] at [phone] stating pt's family was due to come in today to look at facility, and sign docs. ROLANDO called at apprx 1343 as she had not heard from Ana Paula. Ana Paula said family showed, and she is currently taking pictures of pt's space. She is planning to go to their home today. She said she will call ROLANDO back after she speaks to family. ROLANDO and Ana Paula tetatively scheduled d/c for Tuesday @11am. ROLANDO team will continue to follow pt during his stay on this unit.
[2020-06-18 19:26] VITALS: BP 150/59
[2020-06-18 21:22] VITALS: BP 150/59
--- NOTE | 2020-06-19 02:08 | NUR ---
Assumed care of patient this pm shift. Patient in good spirits wandering with peers. Patient is alert and oriented to self only. Patient does not appear to have hi/si. Patient is calm and cooperative and takes medications crushed in ice cream. Patient is ambulatory and has a steady gait. Patients affect is variable. Patients assessment shows no signs of acute distress. Vital signs stable. Patient is somewhat resistive with cares. We will continue to monitor per hospital policy.
[2020-06-19 05:47] LABS: ABSOLUTE NEUTROPHILS 3.6 thou/uL (1.4-8.2); BASOPHILS 0.4 % (0.0-2.0); EOSINOPHILS 1.6 % (0.0-3.0); LYMPHOCYTES 43.4 % (24.0-44.0); MCH 32.4 pg (26.0-34.0); MCHC 33.4 g/dL (28.0-37.0); MCV 96.8 fL (80.0-100.0); MONOCYTES 9.8 % (1.0-8.0); PLATELET COUNT 220 thou/uL (150-400); POLYS 44.8 % (36.0-66.0); RDW 14.4 % (10.5-14.5)
[2020-06-19 05:56] LABS: CREATININE 1.3 mg/dL (0.7-1.3); POTASSIUM 4.6 mmol/L (3.5-5.1)
[2020-06-19 08:00] VITALS: BP 111/85
--- NOTE | 2020-06-19 14:44 | NUR ---
Assume patient care around 7am. calm and cooperative. not motivated to eat, but cooperative when being fed. no n/v. no sign of pain. resting on the couch in the breakroom now.
[2020-06-19 19:40] VITALS: BP 97/53
--- NOTE | 2020-06-19 21:23 | NUR ---
Assumed care on 06-19-20 @ 19:15, ambulating thru the mileu. Enters peers rooms and was compliant with redirection. Took meds crushed in pudding, Compliant with with medication administration. Resistant to assessment, noted to be breathing with regular respirations. VSWNL. PRN Trazadone provided @ 20:30. Care transferred to another nurse @ 2100.
--- NOTE | 2020-06-20 01:23 | NUR ---
Assumed pt's care @ 2100 this pm shift. Pt was on the donnie-chair. Meds given by prior RN. Pt sitting calmly. Did have some aggitation but easy to calm down. Pt currently sleeping on the gerichair in the day room. Will continue to monitor.
[2020-06-20 07:53] VITALS: BP 150/76
--- NOTE | 2020-06-20 12:16 | NUR ---
PACING IN HALLWAYS AND IN DAYROOM INTRUSIVE AT TIMES GRABBING ITEMS OFF OF PEERS TRAYS OR STAFF MED CART. IS REDIRECTABLE WITH SEVERAL VERBAL,TACTILE PROMPTS. MOSTLY NON-VERBAL WILL RESPOND YES/NO AT TIMES TO QUESTIONS ASKED. GAIT SLIGHTLY UNSTEADY AT TIMES AND REMIANS HIGH FALLS RISK D/T IMPULSIVE BEHAVIORS. COMPLIENT WITH TAKING PO MEDICATIONS CRUSHED IN ICE CREAM. NO NOTED OR REPORTED PAIN-IE FACIAL GRIMACING ETC NOTED.
--- NOTE | 2020-06-20 15:02 | NUR ---
RT Progress Note- Phong's participation in the milieu has improved since his last progress note. Phong is able to tolerate sitting with the milieu for longer periods of time. He also does not display disruptive or intrusive behaviors during groups or peer interaction. Phong does not actively engage d/t cognitive deficits. RT will continue to encourage patient's participation.
--- NOTE | 2020-06-20 15:25 | NUR ---
[facility]O faxed updates and physician form to Ana Paula with [facility]. [facility] team will continue to follow pt during his stay on this unit.
[2020-06-20 19:51] VITALS: BP 145/91
--- NOTE | 2020-06-21 03:28 | NUR ---
Assumed pt's care this pm shift. Pt oriented to self. Confused. Forgetful. Pt was in the dayroom at time of assessment. Pt took meds whole as ordered. Pt had a small bm. Cleaned up and laid on his bed. Pt tried several times to get out of bed. Fall precaution in place. Pt brought out to the dayroom on a gerichair. Sleeping off and on. Will continue to monitor.
[2020-06-21 07:39] VITALS: BP 121/89
--- NOTE | 2020-06-21 18:39 | NUR ---
Alert to name only. Sat quietly in recliner most of the day appearing to sleep. When up to the toilet he was resistant to transferring from chair to toilet and vice versa but was otherwise cooperative. No speech/behavior suggestive of SI/HI. Much more awake at dinner. Breath sounds clear. Reg HR auscultated. Color pink with brisk capillary refill and palpable peripheral pulses. Yellow urine per toilet. Hypoactive bowel sounds over soft flat abdomen. Small yellow brown stool.
--- NOTE | 2020-06-22 03:27 | NUR ---
Assumed pt's care this pm shift. Pt was in the dayroom at time of assessment. Drowsy but cooperative. Pt took meds as given. Pt has HS snacks. Was incontinent of bladder. Cleaned up and taken to bed. Pt does not voice much sensible words. Occassionally can voice "ok" in agreement to instructions. Pt currently in bed and sleeping. Fall precautions in place. Will continue to monitor.
[2020-06-22 07:53] VITALS: BP 148/64
[2020-06-22 19:58] VITALS: BP 144/56
--- NOTE | 2020-06-23 03:24 | NUR ---
ASSUMED PT CARE AROUND 1930. ALERT AND AWAKE. ANWERS SIMPLE YES OR NO QUESTIONS. AT THIS BEGINNING OF THIS SHIFT, PT WANDERED A LOT TRYING TO ENTER OTHER PT'S ROOMS. PT WAS STOPPED MULTIPLE TIMES AND APPARENTLY THIS MADE PT VERY ANGERY TO A POINT WHERE PT THREW A CUP OF PUDDING WITH MEDS ON THE FLOOR AND REFUSED MEDS. PT RECEIVED A DOSE OF IM THORAZINE HAS BEEN LESS ANGRY AND RESTLESS. RESTING IN RECLINER NOW. NO S/S ACUTE DISTRESS NOTED OR REPORTED AT THIS TIME. WILL CONT TO MONITOR FOR ANY CHANGES IN CONDITION.
[2020-06-23] MEDS ORDERED: ACETAMINOPHEN325 M1 PO (07:32)
[2020-06-23] MEDS ORDERED: CHLORPROMAZINE25 M3 PO (07:32)
[2020-06-23] MEDS ORDERED: FLOMAX0.4 MG PO (07:32)
[2020-06-23] MEDS ORDERED: SENNA-TIME S T1 EACH PO (07:32)
[2020-06-23] MEDS ORDERED: COZAAR100 MG PO (07:32)
[2020-06-23] MEDS ORDERED: SYNTHROID137 MC1 PO (07:32)
[2020-06-23] MEDS ORDERED: FINASTERIDE5 MG PO (07:32)
[2020-06-23] MEDS ORDERED: GABAPENTIN 100100 MG PO (07:32)
[2020-06-23] MEDS ORDERED: TRAZODONE HCL100 MG PO (07:32)
[2020-06-23 07:46] VITALS: BP 168/86
--- NOTE | 2020-06-23 11:50 | NUR ---
ROLANDO D/C NOTE ROLANDO faxed discharge documents to Kendrick at [facility]. ROLANDO will file confirmation page in pt's file. [facility] team will continue to follow pt during his stay on this unit.
--- NOTE | 2020-06-23 15:05 | NUR ---
PT ALERT TO SELF ONLY. PT DID NOT ANSWER ANY ASSESSMENT QUESTIONS. PT UP WALKING AROUND THE UNIT. PT TOLERATES MEDS AND MEALS. PLANS TO DISCHARGE. WILL CONTINUE TO MONITOR.
== END 2020-06-23 11:15 | disposition home or self-care (01) | DRG 57 ==
LOC: ER 12:20 → SBH 12:27 → EROBS 19:18 → SBH 05-31 12:33
PROVIDERS: Emergency Medicine; Family Medicine; Internal Medicine; ADMIT Psychiatry & Neurology Psychiatry; ATTEND Psychiatry & Neurology Psychiatry
DX: G30.9 Alzheimer's disease, unspecified (principal); F01.51 Vascular dementia, unspecified severity, with behavioral disturbance; N18.30 Chronic kidney disease, stage 3 unspecified; F02.81 Dementia in other diseases classified elsewhere, unspecified severity, with behavioral disturbance; N39.0 Urinary tract infection, site not specified; F23 Brief psychotic disorder; E03.9 Hypothyroidism, unspecified; E78.5 Hyperlipidemia, unspecified; R73.03 Prediabetes; B96.20 Unspecified Escherichia coli [E. coli] as the cause of diseases classified elsewhere; D64.9 Anemia, unspecified; I12.9 Hypertensive chronic kidney disease with stage 1 through stage 4 chronic kidney disease, or unspecified chronic kidney disease; M47.812 Spondylosis without myelopathy or radiculopathy, cervical region; Z20.828 Contact with and (suspected) exposure to other viral communicable diseases; Z90.49 Acquired absence of other specified parts of digestive tract
CPT/HCPCS: 10880